=== PATIENT | male | born 1965 | race Asian ===

== ENCOUNTER 2019-06-22 05:59 | Emergency (ER) | payer SELFPAY ==
[~2019-06-22] VITALS: Ht 175.3 cm; Wt 88.0 kg
--- NOTE | 2019-06-22 06:25 | NUR ---
ED Nurse Note: Recieved pt from home, awake, alert and oriented x 4, with c/o "allergic reaction" with itching and rash noted to BUE, pt was seen in urgent care yesterday and given oral med treatment, states awakened this am and rash and itching is worse, pt denies any other complaints or discomforts, no CP or SOB, pt assisted to bed and gowning, will resume care as ordered and closely montior, pt denies any respiratory s/s.
--- NOTE | 2019-06-22 06:28 | Emergency Room Report ---
History of Present Illness General Chief Complaint: Skin Rash/Abscess Source: Patient Present Illness HPI Patient 54-year-old male presents after increased generalized itchiness as well as skin rash. Patient reportedly had ingested some mushrooms yesterday. He had intermittent episodes of itchiness as well as some skin rash. He had been taking Claritin as well as prednisone after being seen in urgent care yesterday. He denies any nausea or vomiting. He denies any shortness of breath. He reports having some itchiness to his skin and throat. He denies any abdominal pain. Allergies: Coded Allergies: Mushroom (Verified Allergy, Unknown, 06/22/19) Patient History Past Medical History: see triage record Reviewed Nursing Documentation: PMH: Agreed; PSxH: Agreed Nursing Documentation-PMH Past Medical History: No Stated History Review of Systems All Other Systems: negative except mentioned in HPI Physical Exam Vital Signs Date Time Temp Pulse Resp B/P (MAP) Pulse Ox O2 Delivery O2 Flow Rate FiO2 06/22/19 06:10 97.7 79 16 118/76 (90) 96 Room Air General Appearance: well appearing, no apparent distress, alert, GCS 15 Head: normocephalic, atraumatic Eyes: bilateral eye PERRL ENT: hearing grossly normal, normal pharynx, normal voice Neck: full range of motion, supple Respiratory: no respiratory distress, speaking full sentences Cardiovascular #1: normal inspection Gastrointestinal: normal inspection Musculoskeletal: normal inspection Neurologic: normal inspection, alert, oriented x3, responsive, lens edger III-XII nml as tested, motor strength/tone normal, normal gait Psychiatric: mood/affect normal Skin: other - urticaria rash generalized patchy Medical Decision Making Diagnostic Impression: Primary Impression: Allergic urticaria due to ingested food ER Course Patient presented for skin rash. Differential diagnosis include was not limited to allergic reaction, cold induced urticaria, mushroom toxicity, anaphylaxis among others. Patient's exam overall appears to be benign. Patient appears to have a moderate allergic reaction to mushrooms. It is unclear what type of mushrooms these are so liver function tests were sent. Laboratory testing showed a minimally elevated white blood count which is likely due to recent steroid use. Patient will be discharged home after reassessment. Reevaluation Time: 07:48 Last Vital Signs Date Time Temp Pulse Resp B/P (MAP) Pulse Ox O2 Delivery O2 Flow Rate FiO2 06/22/19 06:10 97.7 79 16 118/76 (90) 96 Room Air Status: improved Reevaluation Impression Patient reexamined with improvement in urticaria. Patient does not appear to have any evidence of anaphylaxis or severe shortness of breath. Patient states he feels better and wants to leave. He was advised to return if any worsening condition or other concerns. The patient was advised on how to use medications. This medical record is generated with [employer] welfare administrator software. There may be some welfare administrator discrepancies related to use of this software Disposition: HOME, SELF-CARE Condition: Stable Scripts Diphenhydramine Hcl (BENADRYL ALLERGY) 25 Mg Tablet 25 MG PO EVERY 6 HOURS for itching, #30 TAB Prov: Carlos Blanco MD 06/22/19 Prednisone* (PREDNISONE*) 20 Mg Tablet 40 MG ORAL DAILY, #10 TAB Prov: Carlos Blanco MD 06/22/19 Carlos Blanco MD Jun 22, 2019 06:28
[2019-06-22] MEDS ORDERED: DiphenhydrAMINE 50mg/ml Inj IVP ONE (06:30)
[2019-06-22] MEDS ORDERED: Solu-MEDROL 125mg Inj IVP ONE (06:30)
[2019-06-22 06:56] LABS: HEMATOCRIT 42.5 % (42.0-52.0); MEAN CORPUSCULAR VOLUME 86 FL (80-99); PLATELET COUNT 228 K/UL (150-450); RED BLOOD COUNT 4.91 M/UL (4.70-6.10); RED CELL DISTRIBUTION WIDTH 10.9 % (11.6-14.8); WHITE BLOOD COUNT 13.8 K/UL (4.8-10.8)
[2019-06-22 07:00] LABS: ANION GAP 10 mmol/L (5-15); BLOOD UREA NITROGEN 18 mg/dL (7-18); CALCIUM 8.8 MG/DL (8.5-10.1); CARBON DIOXIDE 26 MMOL/L (21-32); CHLORIDE 105 MMOL/L (98-107); CREATININE 0.9 MG/DL (0.55-1.30); POTASSIUM 4.1 MMOL/L (3.5-5.1); SODIUM 140 MMOL/L (136-145)
[2019-06-22 07:05] LABS: ALANINE AMINOTRANSFERASE 19 U/L (12-78); ALBUMIN 3.9 G/DL (3.4-5.0); ALBUMIN/GLOBULIN RATIO 1.1 (1.0-2.7); ALKALINE PHOSPHATASE 55 U/L (46-116); ASPARTATE AMINO TRANSFERASE 15 U/L (15-37); BILIRUBIN,TOTAL 0.4 MG/DL (0.2-1.0)
--- NOTE | 2019-06-22 07:10 | NUR ---
ED Nurse Note: Assumed patient care. Patient stable, resting in bed. No complaints of pain. BUE rashes noted. Per pt, still itches. BP 114/64.
[2019-06-22] MEDS ORDERED: BENADRYL ALLERG25 M1 PO (07:29)
[2019-06-22] MEDS ORDERED: PREDNISONE20 MG ORAL (07:29)
[2019-06-22 08:09] VITALS: BP 114/64
--- NOTE | 2019-06-22 08:09 | NUR ---
ER DISCHARGE NOTE: Patient is cleared to be discharged per ERMD, pt is aox4, on room air, with stable vital signs. pt was given dc and prescription instructions, pt was able to verbalize understanding, pt id band and iv site removed without complications. pt is able to ambulate with steady gait. pt took all belongings.
== END 2019-06-22 08:09 | disposition home or self-care (01) ==
LOC: EMR 06:30
DX: L50.0 Allergic urticaria (principal); Z91.018 Allergy to other foods
CPT/HCPCS: 36415; 80053; 85007; 85025; 96374; 96375; 99284; J1200; J2930